=== PATIENT | female | born 1975 | race Caucasian/White ===

== ENCOUNTER 2019-06-25 19:27 | Emergency (ER) | payer OTHER ==
[~2019-06-25] VITALS: Ht 154.9 cm; Wt 67.0 kg
[~2019-06-25 19:27] MED LIST: ACET500C5 PO; BISM262O23 PO; ONDA8TAB14 PO
[2019-06-25 19:35] VITALS: Ht 154.9 cm; Wt 67.0 kg
[2019-06-25] MEDS ORDERED: ONDANSETRON (ODT) 4 MG TAB ODT STA (20:40)
[2019-06-25] MEDS ORDERED: KETOROLAC 60 MG INJ IM STA (20:40)
[2019-06-25 21:23] VITALS: BP 106/66; PULSE 88; RESP 19
== END 2019-06-25 21:24 | disposition home or self-care (01) ==
LOC: FTE 19:27
DX: R11.10 Vomiting, unspecified (principal)
CPT/HCPCS: 81003; 81025; 96372; 99284; J1885

== ENCOUNTER 2019-07-28 11:20 | Emergency (ER) | payer OTHER ==
[~2019-07-28] VITALS: Ht 154.9 cm; Wt 66.9 kg
[~2019-07-28 11:20] MED LIST changes: +GABA300C16 PO
[2019-07-28 12:01] VITALS: BP 99/70; PULSE 64; RESP 20; Ht 154.9 cm; Wt 66.9 kg
== END 2019-07-28 13:30 | disposition home or self-care (01) ==
LOC: FTE 11:20
DX: G56.03 Carpal tunnel syndrome, bilateral upper limbs (principal)
CPT/HCPCS: 99283